=== PATIENT | male | born 1955 | race Caucasian/White ===

== ENCOUNTER → 2021-09-14 | Outpatient (CLI) | payer MEDICARE, OTHER ==
[~2021-09-14] MED LIST: BACTROBAN OINT22 GM EXT
[2021-09-16 09:15] LABS: SARS COV-2 SEMI-QUANT IGG >800.0 AU/mL (Neg <13.0); SARS COV-2 SPIKE AB INTERP Positive (.)
== END ==
LOC: EROP 21:49
PROVIDERS: Emergency Medicine
DX: Z20.822 Contact with and (suspected) exposure to COVID-19 (principal)
CPT/HCPCS: 86769; U0002

== ENCOUNTER → 2022-01-24 | Outpatient (CLI) | payer MEDICARE, OTHER | LOC: EROP 08:33 | DX: U07.1 COVID-19 (principal) | CPT/HCPCS: 0240U; 71046; 87081; 87880 ==

== ENCOUNTER → 2022-01-24 | Outpatient (CLI) | payer MEDICARE, OTHER | LOC: LAB 07:03 | DX: U07.1 COVID-19 (principal) | CPT/HCPCS: 0240U; 87081; 87880 ==

== ENCOUNTER → 2022-04-05 | Outpatient (CLI) | payer MEDICARE, OTHER | LOC: EROP 17:20 | DX: Z20.822 Contact with and (suspected) exposure to COVID-19 (principal) | CPT/HCPCS: U0002 ==